=== PATIENT | female | born 1940 | race Caucasian/White ===

== ENCOUNTER 2018-03-05 02:59 | Inpatient (IN) | payer MEDICARE, OTHER ==
[~2018-03-05] VITALS: Ht 162.6 cm; Wt 79.5 kg
--- OUTSIDE RECORDS SUMMARY | 2018-03-05 03:02 | XMS REPORT | Clinical Summary ---
Author Author [facility] Address Unknown Phone Unavailable Care Team Providers Care Stamp Pad Maker Name Role Phone Jerome Abdul MD PCP Allergies Comments Active Allergy Reactions Severity Noted Date Celecoxib Hypertension 12/17/2016 Ciprofloxacin Hypertension Hydralazine Hypertension Tremors Hydrocodone Other (See High Comments) Tremors Hydrocodone-Acetaminophen Other (See 01/11/2010 Comments) Unknown to patient Trimethobenzamide Other (See 01/11/2010 Comments) Medications End Date Status Medication Sig Dispensed Refills Start Date Active doxazosin (CARDURA) 4 MG Take 4 mg by 0 tablet mouth 7 nightly. Active ADVAIR DISKUS 250-50 Inhale 1 puff 0 mcg/dose DISKUS 2 (two) times 7 a day. Active furosemide (LASIX) 40 mg Take 40 mg by 0 tablet mouth every 7 morning. Active hydroCHLOROthiazide Take 25 mg by 0 (HYDRODIURIL) 25 MG mouth every 7 tablet evening. Active levothyroxine (SYNTHROID, Take 137 mcg 0 LEVOXYL) 137 mcg tablet by mouth 7 every morning. Active KLOR-CON M20 20 mEq CR Take 20 mEq 0 tablet by mouth 7 every morning. Active verapamil sustained Take 120 mg 0 release (CALAN-SR) 120 MG by mouth 7 SR tablet every evening. Active latanoprost (XALATAN) Administer 1 0 0.005 % ophthalmic drop to both 7 solution eyes nightly. Active losartan (COZAAR) 100 MG Take 100 mg 0 tablet by mouth 7 every morning. Active GUAIFENESIN/PSEUDOEPHEDRN Take 400 mg 0 E HCL (MUCINEX D ORAL) by mouth 2 (two) times a day. Active fexofenadine (BRIT) Take 180 mg 0 180 MG tablet by mouth every morning. Active lutein 6 mg tablet Take 6 mg by 0 mouth every morning. Active vitamin E 400 UNIT Take 400 0 capsule Units by mouth every morning. Active estradiol (ESTRACE) 0.5 Take 0.25 mg 0 MG tablet by mouth nightly. Active cholecalciferol, vitamin Take 1,000 0 D3, (VITAMIN D3) 1,000 Units by unit tablet mouth every morning. Active TURMERIC ROOT EXTRACT Take 450 mg 0 ORAL by mouth 2 (two) times a day. Active magnesium oxide (MAG-OX) Take 400 mg 0 400 mg tablet by mouth nightly. Active MOVANTIK 25 mg tablet Take 25 mg by 0 tablet mouth daily. 7 Active aspirin (ECOTRIN) 81 MG Take 81 mg by 0 enteric coated tablet mouth 2 (two) times a day. Active fluticasone (FLONASE) 50 1 spray by 0 mcg/actuation nasal spray Each Nare route 2 (two) times a day. Active esomeprazole magnesium Take 22.3 mg 0 (NexIUM 24HR) 22.3 mg by mouth capsule,delayed nightly. release(DR/EC) Active ondansetron (ZOFRAN) 4 MG Take 4 mg by 0 tablet mouth every 8 (eight) hours as needed for nausea or vomiting. Active GAGE EXTRACT ORAL Take 1 0 capsule by mouth every evening. Active irnfzknb-uurv-spbs-FA-K-h Take 1 tablet 0 b#244 (ALIVE WOMEN'S by mouth ENERGY) 18-400-80 every mg-mcg-mcg tablet morning. Active krill oil 500 mg capsule Take 1 0 capsule by mouth daily. Active DOCUSATE SODIUM ORAL Take 1 tablet 0 by mouth 2 (two) times a day as needed. Active azelastine (ASTELIN) 137 1 spray into 0 mcg (0.1 %) nasal spray each nostril nightly. Use in each nostril as directed Active diclofenac (FLECTOR) 1.3 Place 1 patch 0 % patch 12 hour on the skin daily. 08/04/2017 sulfamethoxazole-trimetho Take 1 tablet 14 tablet 0 prim (BACTRIM DS) 800-160 by mouth 2 8 mg per tablet (two) times a day for 7 days. 09/02/2017 nitrofurantoin, Take 1 14 capsule 0 macrocrystal-monohydrate, capsule (100 8 (MACROBID) 100 MG capsule mg total) by mouth 2 (two) times a day for 7 days. 09/30/2017 amoxicillin-pot Take 1 tablet 14 tablet 0 clavulanate (AUGMENTIN) by mouth 2 8 875-125 mg per tablet (two) times a day for 7 days. 11/12/2017 Discontinued fluconazole (DIFLUCAN) Take 1 tablet 1 tablet 0 150 MG tablet (150 mg 8 total) by mouth once for 1 dose. 11/19/2017 amoxicillin-pot Take 1 tablet 14 tablet 0 clavulanate (AUGMENTIN) by mouth 2 8 875-125 mg per tablet (two) times a day for 7 days. 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 Encounters Care Team Description Date Type Specialty Shaina Romano MD 11/12/2017 Refill Urology Shaina Romano MD 11/12/2017 Transcribe Urology Orders Shaina Romano MD 11/07/2017 Telephone Urology Kaela Garcia MD Recurrent UTI 10/24/2017 Orders Only Urology Shaina Romano MD 10/17/2017 Telephone Urology Kaela Garcia MD Recurrent UTI 10/17/2017 Orders Only Urology Kaela Garcia MD Recurrent UTI 10/10/2017 Orders Only Urology Kaela Garcia MD Recurrent UTI 10/03/2017 Orders Only Urology Kaela Garcia MD Recurrent UTI 09/26/2017 Orders Only UrologShaina Max MD Incomplete bladder emptying (Primary Dx); Urinary frequency 09/24/2017 Office Visit UrologShaina Max MD 09/23/2017 Telephone Urology Shaina Romano MD Recurrent UTI (Primary Dx) 09/19/2017 Telephone Urology Kaela Garcia MD Recurrent UTI 09/19/2017 Orders Only Urology Kaela Garcia MD Recurrent UTI 09/12/2017 Orders Only Urology Kaela Garcia MD Recurrent UTI 09/05/2017 Orders Only Urology Kaela Garcia MD Recurrent UTI 08/29/2017 Orders Only Urology Shaina Romano MD 08/26/2017 Telephone Urology Shaina Romano MD 08/22/2017 Telephone Urology Kaela Garcia MD Recurrent UTI 08/22/2017 Orders Only Urology Kaela Garcia MD Recurrent UTI 08/15/2017 Orders Only Urology Kaela Garcia MD Recurrent UTI 08/08/2017 Orders Only Urology Shaina Romano MD 07/28/2017 Telephone Urology Kaela Garcia MD Recurrent UTI (Primary Dx) 07/28/2017 Telephone Urology Shaina Romano MD Recurrent UTI (Primary Dx) 07/24/2017 Telephone Urology Christine Chong MA 04/08/2017 Telephone Gastroenterology Paulino Pearce RN 04/08/2017 Telephone Gastroenterology Jarrod Dangelo MD 03/17/2017 Lab Lab Ryland Whitt MA 03/14/2017 Telephone Gastroenterology after 03/04/2017 Family History Medical History Relation Name Comments No Known Problems Brother No Known Problems Father No Known Problems Maternal Aunt No Known Problems Maternal Grandfather No Known Problems Maternal Grandmother No Known Problems Maternal Uncle No Known Problems Mother No Known Problems Paternal Aunt No Known Problems Paternal Grandfather No Known Problems Paternal Grandmother No Known Problems Paternal Uncle No Known Problems Sister Relation Name Status Comments Brother Father Maternal Aunt Maternal Grandfather Maternal Grandmother Maternal Uncle Mother Paternal Aunt Paternal Grandfather Paternal Grandmother Paternal Uncle Sister Social History Date Tobacco Use Types Packs/Day Years Used Never Smoker Smokeless Tobacco: Never Used Alcohol Use Drinks/Week oz/Week Comments No Sex Assigned at Date Recorded Not on file Industry Job Start Date Occupation Not on file Not on file Not on file Travel End Travel History Travel Start No recent travel history available. Last Filed Vital Signs Not on file Plan of Treatment Care Team Description Date Type Specialty Shaina Romano MD [address] [place] [address] [phone] 09/30/2018 Office Visit Urology Health Maintenance Due Date Last Done Comments SHINGRIX VACCINE (1 of 2) 1988 ZOSTER VACCINE 1998 PNEUMOCOCCAL 2003 POLYSACCHARIDE VACCINE AGE 65 AND OVER PNEUMOCOCCAL-13 2003 INFLUENZA VACCINE 11/12/2017 COLON CANCER SCREENING 03/17/2020 03/17/2017 Implants Device Identifier Shelf Expiration Date Model / Serial / Lot Implanted Type Area Manufactur er 03/13/2021 [id number] / / [id number] Alfredito Rev F Glid.Surf.T2/2+ IPM Left: Knee AESCULAP 14mm - [id number] IMPLANT IMPLANT Implanted: Qty: 1 on 12/17/2016 by Maxim Urrutia MD [employer]TH[employer] 06/11/2026 [id number] / / [id number] Nut F/Femur Extens.Stem All Sizes IPM Left: Knee AESCULAP Neutr - [id number] IMPLANT IMPLANT Implanted: Qty: 1 on 12/17/2016 by Maxim Urrutia MD [employer]TH[employer] 11/11/2025 [id number] / / [id number] Femur Extens.Stem 5 [id number] IPM Left: Knee AESCULAP Jaswant.Less - [id number] IMPLANT IMPLANT Implanted: Qty: 1 on 12/17/2016 by Maxim Urrutia MD ORTH[employer]I 02/11/2026 [id number] / / [id number] As Alfredito Rev F Femur Cemented IPM Left: Knee AESCULAP F4l - [id number] IMPLANT IMPLANT Implanted: Qty: 1 on 12/17/2016 by Maxim Urrutia MD ORTH[employer]AEDI 05/14/2026 [id number] / / [id number] As [place] Offset Stem [id number] IPM Left: Knee AESCULAP Cementless - [id number] IMPLANT IMPLANT Implanted: Qty: 1 on 12/17/2016 by Maxim Urrutia MD ORTH[employer]I 03/13/2021 [id number] / / [id number] As [place] Rev F Tib.Offset IPM Left: Knee AESCULAP Cement.T2 - [id number] IMPLANT IMPLANT Implanted: Qty: 1 on 12/17/2016 by DEVICES Maxim Live MD [employer]TH[employer]I CS 04/14/2018 [id number] 001 / / [id number] Simplex Hv With Gentamicin Us 1 IPM Left: Knee JOSE Pack - [id number] IMPLANT ORTHOPEDIC Implanted: Qty: 1 on 12/17/2016 by DEVICES S Maxim Celaya MD [id number] / / Pin Fxtn W/O Head 3.2x88mm - Knee Joint N/A: N/A AESCULAP [id number] Implants ORTHO Implanted: Qty: 2 on 12/17/2016 by Maxim Celaya MD [id number] / / Pin Headed Thred Univl 3.2x25mm Knee Joint N/A: N/A AESCULAP [place] - [id number] Implants ORTHO Implanted: Qty: 2 on 12/17/2016 by Maxim Celaya MD [id number] / / Pin Headls Thred Univl 3.2x63mm Knee Joint N/A: N/A AESCULAP [place] - [id number] Implants ORTHO Implanted: Qty: 6 on 12/17/2016 by Maxim Celaya MD 04/13/2026 [id number] / / [id number] As [place] Rev Fem.Spacer Post.F4 Left: Knee AESCULAP 5mm - [id number] IMPLANT Implanted: Qty: 1 on 12/17/2016 by Maxim Live MD ORTH[employer]I CS Procedures Comments Procedure Name Priority Date/Time Associated Diagnosis URINE CULTURE Routine 11/08/2017 Recurrent UTI 11:23 AM CDT URINE CULTURE Routine 09/19/2017 Recurrent UTI 1:43 PM CDT URINE CULTURE Routine 08/22/2017 Recurrent UTI 10:34 AM CDT URINE CULTURE Routine 07/24/2017 Recurrent UTI 5:14 PM CDT SURGICAL PATHOLOGY Routine 03/17/2017 REQUEST 4:42 PM RADIATION OFFICER after 03/04/2017 Results * Urine culture (11/08/2017 11:23 AM CDT) Only the most recent of 4 results within the time period is included. Urine culture SEE NOTE (A) [employer] Comment: FORTESCUE CULTURE, URINE, ROUTINE MICRO NUMBER:[id number] TEST STATUS: FINAL SPECIMEN SOURCE: URINE, CLEAN CATCH SPECIMEN QUALITY:ADEQUATE RESULT: 10,000-50,000 CFU/mL of Klebsiella pneumoniae K.pneumo niae -------- -------- INT LEXIS AMOX/CLAVULANATE S <=2 AMPICILLIN R 16 AMP/SULBACTAM S 4 CEFAZOLIN NR<=4 2 CEFEPIME S <=1 CEFTRIAXONE S <=1 CIPROFLOXACIN S <=0.25 GENTAMICIN S <=1 IMIPENEM S <=0.25 LEVOFLOXACIN S <=0.12 NITROFURANTOIN I 64 PIP/TAZOBACTAM S <=4 TOBRAMYCIN S <=1 TRIMETHOPRIM/SULFA R >=320 S=SusceptibleI=Intermediat eR=Resistant*=Not Tested NR=Not ReportedNN=See Therapy Comments THERAPY COMMENTS Note 1: For infections other than uncomplicated UTI caused by E. coli, K. pneumoniae or P. mirabilis: Cefazolin is resistant if LEXIS > or=8 mcg/mL. (Distinguishing susceptible versus intermediate for isolates with LEXIS < or=4 mcg/mL requires additional testing.) Note 2: For uncomplicated UTI caused by E. coli, K. pneumoniae or P. mirabilis: Cefazolin is susceptible if LEXIS <32 mcg/mL and predicts susceptible to the oral agents cefaclor, cefdinir, cefpodoxime, cefprozil, cefuroxime, cephalexin and loracarbef. Specimen Urine Narrative Performed At FASTING:NO [facility] FASTING: NO Resulting Agency Comment Performing Organization Information: Site ID: [id number] Name: [facility] Lab Address: [address] [place] [id number] Director: Nelli Onofre Performing Organization Address City/State/Zipcode Phone Number [employer] [address] [address] * Surgical pathology request (03/17/2017 4:42 PM RADIATION OFFICER) [facility] DEPARTMENT OF PATHOLOGY AND GENOMIC MEDICINE Surgical pathology report See link below for PDF Lab [facility] DEPARTMENT OF Report PATHOLOGY AND GENOMIC MEDICINE Result status This is Final Report to [facility] DEPARTMENT OF [id number] PATHOLOGY AND GENOMIC MEDICINE Performing Organization Address City/State/Zipcode Phone Number [facility] DEPARTMENT OF [address] [place] [address] PATHOLOGY AND GENOMIC MEDICINE after 03/04/2017 Insurance Payer Benefit Subscriber ID Type Phone Address Plan / Group MEDICARE MEDICARE xxxxxxxxxx Medicare [place], [place] PART A AND B COMMERCIAL MISC MISC xxxxxxxxxxx Commercial COMMERCIAL Advance Directives Patient has advance care planning documents on file. For more information, david vance contact: Mohan Eldridge [address] [place] [address]
[2018-03-05 03:18] LABS: BASOPHILS % 0.4 % (0.0-1.0); EOSINOPHILS # (AUTO) 0.1 (0.0-0.4); EOSINOPHILS % 0.7 % (0.0-6.0); HEMATOCRIT 35.6 % (34.2-44.1); HEMOGLOBIN 12.7 g/dL (12.0-16.0); LYMPHOCYTES # (AUTO) 1.5 (1.0-3.2); LYMPHOCYTES % 20.9 % (18.0-39.1); MEAN CORPUSCULAR HEMOGLOBIN 32.6 pg (28-32); MEAN CORPUSCULAR HGB CONC 35.7 g/dL (31-35); MEAN CORPUSCULAR VOLUME 91.5 fL (81-99); MONOCYTES # (AUTO) 0.7 (0.2-0.8); MONOCYTES % 9.7 % (4.4-11.3); NEUTROPHILS # (AUTO) 4.8 (2.1-6.9); NEUTROPHILS % 67.9 % (38.7-80.0); PLATELET COUNT 246 x10e3/uL (140-360); RED BLOOD COUNT 3.89 x10e6/uL (3.6-5.1); RED CELL DISTRIBUTION WIDTH 12.3 % (11.7-14.4)
[2018-03-05 03:37] LABS: ALANINE AMINOTRANSFERASE 16 IU/L (0-55); ALBUMIN 4.1 g/dL (3.5-5.0); ALBUMIN/GLOBULIN RATIO 1.4 (0.8-2.0); ALKALINE PHOSPHATASE 67 IU/L (40-150); ANION GAP 13.6 mmol/L (8-16); BLOOD UREA NITROGEN 11 mg/dL (7-26); BUN/CREATININE RATIO 17 (6-25); CALCIUM 9.4 mg/dL (8.4-10.2); CARBON DIOXIDE 24 mmol/L (22-29); CHLORIDE 89 mmol/L (98-107); CREATINE KINASE 127 IU/L (29-168); CREATININE, SERUM 0.66 mg/dL (0.57-1.11); EST GLOMERULAR FILTRATION RATE > 60 ML/MIN (60-); GLUCOSE 131 mg/dL (74-118); POTASSIUM 3.6 mmol/L (3.5-5.1); SODIUM 123 mmol/L (136-145)
--- NOTE | 2018-03-05 03:55 | Diagnostic Imaging Report ---
History: Weakness, headache Comparison studies: None Technique: Axial images were obtained from the skull base to the vertex. Coronal and sagittal reconstructions obtained from the axial data. Dose modulation, iterative reconstruction, and/or weight based adjustment of the mA/kV was utilized to reduce the radiation dose to as low as reasonably achievable. Findings: Scalp/skull: No abnormalities. No fractures, blastic or lytic lesions. Extra-axial spaces: No masses. No fluid collections. Brain sulci: Appropriate for age. Ventricles: Normal in size and configuration. No hydrocephalus. Parenchyma: No abnormal densities. No masses, hemorrhage, acute or chronic cortical vascular insults. Sellar/suprasellar region: No abnormalities Craniocervical junction: Patent foramen magnum. No Chiari one malformation. Incidental mucosal thickening in the ethmoid air cells IMPRESSION: No intracranial abnormalities. Signed by: Dr. Richard Frausto M.D. on 03/05/2018 3:51 AM
[2018-03-05] MEDS ORDERED: ONDANSETRON HCL INJ 2 MG/ML VIAL IV STA (04:11)
[2018-03-05] MEDS ORDERED: ONDANSETRON HCL INJ 2 MG/ML VIAL ONE (04:20)
--- NOTE | 2018-03-05 05:17 | Diagnostic Imaging Report ---
EXAMINATION: CHEST SINGLE (PORTABLE) INDICATION: Weakness, hypertension COMPARISON: None FINDINGS: AP view TUBES and LINES: None. LUNGS: Lungs are well inflated. Mild bibasilar atelectasis. There is no evidence of pneumonia or pulmonary edema. PLEURA: No pleural effusion or pneumothorax. HEART AND MEDIASTINUM: The cardiomediastinal silhouette is unremarkable. BONES AND SOFT TISSUES: No acute osseous lesion. Soft tissues are unremarkable. UPPER ABDOMEN: No free air under the diaphragm. IMPRESSION: No acute thoracic abnormality. Signed by: DR. Miguel Erickson MD on 03/05/2018 5:14 AM
[2018-03-05 05:51] LABS: CLARITY,URINE CLEAR (CLEAR); COLOR,URINE YELLOW (YELLOW); LEUKOCYTE ESTERASE ,URINE NEGATIVE (NEGATIVE); NITRITE,URINE NEGATIVE (NEGATIVE); PROTEIN,URINE DIPSTICK TRACE (NEGATIVE)
[2018-03-05 05:52] LABS: BILIRUBIN,URINE NEGATIVE (NEGATIVE); KETONES,URINE 3+ (NEGATIVE); URINE UROBILINOGEN 0.2 mg/dL (0.2 - 1)
[2018-03-05 05:53] LABS: BACTERIA,URINE FEW /HPF; EPITHELIAL CELLS,URINE FEW /LPF; RBC,URINE 0-5 /HPF (0-5); WBC,URINE (MAN) 0-5 /HPF (0-5)
[2018-03-05] MEDS ORDERED: ACETAMINOPHEN 325 MG TAB PO ONE (06:00)
--- OUTSIDE RECORDS SUMMARY | 2018-03-05 06:14 | XMS REPORT ---
Author Author [facility] Address Unknown Phone Unavailable Care Team Providers Care Prize Coordinator Name Role Phone Oni CROOKS Unavailable Unavailable Problems This patient has no known problems. Allergies, Adverse Reactions, Alerts This patient has no known allergies or adverse reactions. Medications This patient has no known medications. Results Test Description Test Time Test Comments Text Results Atomic Results Result Comments CHEST SINGLE (PORTABLE) 2018-03-05 05:11:00 [facility] [address] [place], [place] [address] Patient Name: XIOMARA ROCKWELL MR #: [id number] : 1940 Age/Sex: 77/F Req #: [id number] Adm Physician: Ordered by: NAHUN CROOKS MD Report #: [id number] Location: ER Room/Bed: Procedure: [id number] DX/CHEST SINGLE (PORTABLE) Exam Date: 03/05/18 Exam Time: 0347 REPORT STATUS: Signed EXAMINATION: CHEST SINGLE (PORTABLE) INDICATION: Weakness, hypertension COMPARISON: None FINDINGS: AP view TUBES and LINES: None. LUNGS: Lungs are well inflated. Mild bibasilar atelectasis. There is no evidence of pneumonia or pulmonary edema. PLEURA: No pleural effusion or pneumothorax. HEART AND MEDIASTINUM: The cardiomediastinal silhouette is unremarkable. BONES AND SOFT TISSUES: No acute osseous lesion. Soft tissues are unremarkable. UPPER ABDOMEN: No free air under the diaphragm. IMPRESSION: No acute thoracic abnormality. Signed by: DR. Miguel Shelby MD on 03/05/2018 5:14 AM Dictated By: MIGUEL SHELBY MD 3 Transcribed By: LUIS on 03/05/18513 COPY TO: NAHUN CROOKS MD CT BRAIN WO 2018-03-05 03:50:00 [place] [address] Patient Name: XIOMARA ROCKWELL MR #: [id number] : 1940 Age/Sex: 77/F Req #: [id number] Adm Physician: Ordered by: NAHUN CROOKS MD Report #: [id number] Location: ER Room/Bed: Procedure: [id number] CT/CT BRAIN WO Exam Date: 03/05/18 Exam Time: 0339 REPORT STATUS: Signed History: Weakness, headache Comparison studies: None Technique: Axial images were obtained from the skull base to the vertex. Coronal and sagittal reconstructions obtained from the axial data. Dose modulation, iterative reconstruction, and/or weight based adjustment of the mA/kV was utilized to reduce the radiation dose to as low as reasonably achievable. Findings: Scalp/skull: No abnormalities. No fractures, blastic or lytic lesions. Extra-axial spaces: No masses. No fluid collections. Brain sulci: Appropriate for age. Ventricles: Normal in size and configuration. No hydrocephalus. Parenchyma: No abnormal densities. No masses, hemorrhage, acute or chronic cortical vascular insults. Sellar/suprasellar region: No abnormalities Craniocervical junction: Patent foramen magnum. No Chiari one malformation. Incidental mucosal thickening in the ethmoid air cells IMPRESSION: No intracranial abnormalities. Signed by: Dr. Richard Frausto M.D. on 03/05/2018 3:51 AM Dictated By: RICHARD FRAUSTO MD, MD 0 Transcribed By: LUIS on 03/05/18350 COPY TO: NAHUN CROOKS MD
--- OUTSIDE RECORDS SUMMARY | 2018-03-05 06:14 | XMS REPORT | Clinical Summary ---
Author Author [facility] Address Unknown Phone Unavailable Care Team Providers Care Still Operator Name Role Phone Jerome Abdul MD PCP [...] 0 capsule by mouth every evening. Active jevdeqfh-cbyb-mdjb-FA-K-h Take 1 tablet 0 b#244 (ALIVE WOMEN'S [...] Date Type Specialty Shaina Romano MD [address] [address] [place] [address] [phone] 09/30/2018 Office Visit Urology Health Maintenance Due Date Last Done Comments SHINGRIX VACCINE (1 of 2) 1988 ZOSTER VACCINE 1998 PNEUMOCOCCAL 2003 POLYSACCHARIDE VACCINE AGE 65 AND OVER PNEUMOCOCCAL-13 2003 INFLUENZA VACCINE 11/12/2017 COLON CANCER SCREENING 03/17/2020 03/17/2017 Implants Device Identifier Shelf Expiration Date Model / Serial / Lot Implanted Type Area Manufactur er 03/13/2021 [id number] / / [id number] Alfredito Rev F Glid.Surf.T2/2+ IPM Left: Knee AESCULAP 14mm - [id number] IMPLANT IMPLANT Implanted: Qty: 1 on 12/17/2016 by Maxim Urrutia MD [employer]TH[employer]I 06/11/2026 [id number] / / [id number] Nut F/Femur Extens.Stem All Sizes IPM Left: Knee AESCULAP Neutr - [id number] IMPLANT IMPLANT Implanted: Qty: 1 on 12/17/2016 by Maxim Urrutia MD [employer]TH[employer]I 11/11/2025 [id number] / / [id number] Femur Extens.Stem 5 [id number] IPM Left: Knee AESCULAP Jaswant.Less - [id number] IMPLANT IMPLANT Implanted: Qty: 1 on 12/17/2016 by Maxim Urrutia MD ORTHOPAEDI 02/11/2026 [id number] / / [id number] As Alfredito Rev F Femur Cemented IPM Left: Knee AESCULAP F4l - [id number] IMPLANT IMPLANT Implanted: Qty: 1 on 12/17/2016 by Maxim Urrutia MD ORTHOPAEDI 05/14/2026 [id number] / / [id number] As Tibia Offset Stem [id number] IPM Left: Knee AESCULAP Cementless - [id number] IMPLANT IMPLANT Implanted: Qty: 1 on 12/17/2016 by Maxim Urrutia MD ORTHOPAEDI 03/13/2021 [id number] / / [id number] As [place] Rev F Tib.Offset IPM Left: Knee AESCULAP Cement.T2 - [id number] IMPLANT IMPLANT Implanted: Qty: 1 on 12/17/2016 by DEVICES Maxim Live MD [employer]TH[employer]I CS 04/14/2018 [id number] 1 001 / / [id number] Simplex Hv With Gentamicin Us 1 IPM Left: Knee JOSE Pack - [id number] IMPLANT ORTHOPEDIC Implanted: Qty: 1 on 12/17/2016 by DEVICES S Maxim Celaya MD [id number] / / Pin Fxtn W/O Head 3.2x88mm - Knee Joint N/A: N/A AESCULAP [id number] Implants ORTHO Implanted: Qty: 2 on 12/17/2016 by Maxim Celaya MD [id number] / / Pin Headed Thred Univl 3.2x25mm Knee Joint N/A: N/A AESCULAP [place] - [id number] Implants ORTHO Implanted: Qty: 2 on 12/17/2016 by Maxim Celaya MD [id number] / / Pin Headls Thred Univl 3.2x63mm Knee Joint N/A: N/A AESCULAP [place] - [id number] Implants ORTHO Implanted: Qty: 6 on 12/17/2016 by Maxim Celaya MD 04/13/2026 [id number] / / [id number] As [place] Rev Fem.Spacer Post.F4 Left: Knee AESCULAP 5mm - [id number] IMPLANT Implanted: Qty: 1 on 12/17/2016 by Maxim Live MD ORTH[employer]I CS Procedures Comments Procedure Name Priority Date/Time Associated Diagnosis URINE CULTURE Routine 11/08/2017 Recurrent UTI 11:23 AM CDT URINE CULTURE Routine 09/19/2017 Recurrent UTI 1:43 PM CDT URINE CULTURE Routine 08/22/2017 Recurrent UTI 10:34 AM CDT URINE CULTURE Routine 07/24/2017 Recurrent UTI 5:14 PM CDT SURGICAL PATHOLOGY Routine 03/17/2017 REQUEST 4:42 PM STUCCO PLASTERER after 03/04/2017 Results * Urine culture (11/08/2017 11:23 AM CDT) Only the most recent of 4 results within the time period is included. Urine culture SEE NOTE (A) [employer] Comment: [place]WAY CULTURE, URINE, ROUTINE MICRO NUMBER:[id number] TEST STATUS: FINAL SPECIMEN SOURCE: URINE, CLEAN [...] Performing Organization Information: Site ID: [id number] Name: [facility] Lab Address: [address] [place] [id number] Director: Nelli Onofre Performing Organization Address City/State/Zipcode Phone Number [employer] [address] [address] * Surgical pathology request (03/17/2017 4:42 PM STUCCO PLASTERER) [facility] DEPARTMENT OF PATHOLOGY AND GENOMIC MEDICINE Surgical pathology report See link below for PDF Lab [facility] DEPARTMENT OF Report PATHOLOGY AND GENOMIC MEDICINE Result status This is Final Report to [facility] DEPARTMENT OF [id number] PATHOLOGY AND GENOMIC MEDICINE Performing Organization Address City/State/Zipcode Phone Number [facility] DEPARTMENT OF [address] [place] [address] PATHOLOGY AND GENOMIC MEDICINE after 03/04/2017 Insurance Payer Benefit Subscriber ID Type Phone Address Plan / Group MEDICARE MEDICARE xxxxxxxxxx Medicare [place], [place] PART A AND B COMMERCIAL MISC MISC xxxxxxxxxxx Commercial COMMERCIAL Advance Directives Patient has advance care planning documents on file. For more information, david vance contact: Mohan Eldridge [address] [place] [address]
[2018-03-05] MEDS ORDERED: ACETAMINOPHEN 325 MG TAB PO PRN (06:15)
[2018-03-05] MEDS ORDERED: ONDANSETRON HCL INJ 2 MG/ML VIAL IV PRN (06:15)
[2018-03-05] MEDS ORDERED: ASTROPRO INH (06:19)
[2018-03-05] MEDS ORDERED: VITAMIN E400 UNI2 PO (06:19)
[2018-03-05] MEDS ORDERED: LATANOPROST2.5 ML OP (06:19)
[2018-03-05] MEDS ORDERED: [UNRECOGNIZED DRUG - OTHER] INH (06:19)
[2018-03-05] MEDS ORDERED: VITAMIN D31000 UNI1 PO (06:19)
[2018-03-05] MEDS ORDERED: MUCINEX1200 MG PO (06:19)
[2018-03-05] MEDS ORDERED: SYNTHROID50 MCG PO (06:19)
[2018-03-05] MEDS ORDERED: NORVASC5 MG PO (06:19)
[2018-03-05] MEDS ORDERED: ESTRADIOL1 MG PO (06:19)
[2018-03-05] MEDS ORDERED: KLOR-CON 1010 MEQ PO (06:19)
[2018-03-05] MEDS ORDERED: XYZAL5 MG PO (06:19)
[2018-03-05] MEDS ORDERED: DOXAZOSIN MESYLA2 MG PO (06:19)
[2018-03-05] MEDS ORDERED: LUTEIN6 MG PO (06:19)
[2018-03-05] MEDS ORDERED: FLONASE NS (06:19)
[2018-03-05] MEDS ORDERED: HERBAL LAXATIVE PO (06:19)
[2018-03-05] MEDS ORDERED: HYDROCHLOROTHIA25 MG PO (06:19)
[2018-03-05] MEDS ORDERED: DOCUSATE SODIU100 MG PO (06:19)
[2018-03-05] MEDS ORDERED: MACA500 MG PO (06:19)
[2018-03-05] MEDS ORDERED: ASPIR 8181 MG PO (06:19)
[2018-03-05] MEDS ORDERED: LOSARTAN POTAS100 MG PO (06:19)
[2018-03-05] MEDS ORDERED: NEXIUM20 MG PO (06:19)
[2018-03-05] MEDS: ESTRADIOL 1 MG TAB PO SCH (06:30)
[2018-03-05] MEDS: LEVOTHYROXINE SODIUM 50 MCG TAB PO SCH (06:42)
[2018-03-05] MEDS: SODIUM CHLORIDE 0.9% 1000ML 1,000 ML IV SCH ×2 (06:42→20:49)
[2018-03-05 07:43] VITALS: BP 157/75
[2018-03-05 08:03] VITALS: BP 157/75
[2018-03-05] MEDS: POTASSIUM CHLORIDE 20 MEQ TAB CR PO SCH (08:48)
[2018-03-05] MEDS: LOSARTAN POTASSIUM 100 MG TAB PO SCH (08:48)
[2018-03-05] MEDS: GUAIFENESIN 600 MG TAB PO SCH ×2 (08:49→15:31)
[2018-03-05] MEDS ORDERED: HYDROCHLOROTHIAZIDE 25 MG TAB PO SCH (09:00)
[2018-03-05] MEDS ORDERED: DOXAZOSIN MESYLATE 2 MG TAB PO SCH (09:00)
[2018-03-05] MEDS: FLUTICASONE PROPIONATE NASAL SPRAY NS SCH (09:00)
[2018-03-05] MEDS ORDERED: DOCUSATE SODIUM 100 MG CAP PO SCH (09:00)
[2018-03-05] MEDS ORDERED: [UNRECOGNIZED DRUG - OTHER] PO SCH (09:00)
[2018-03-05] MEDS ORDERED: LORATADINE 10 MG TAB PO SCH (09:00)
[2018-03-05] MEDS ORDERED: AMLODIPINE BESYLATE 5 MG TAB PO SCH (09:00)
[2018-03-05] MEDS ORDERED: LUTEIN 6 MG PO SCH (09:00)
[2018-03-05] MEDS ORDERED: ACETAMIN/BUTALBITAL/CAFFEINE TAB PO PRN (12:00)
[2018-03-05] MEDS ORDERED: CEFTRIAXONE SOD 1 GM/NS 50 ML 50 ML IV SCH (12:00)
[2018-03-05] MEDS ORDERED: BENZONATATE 100 MG CAP PO PRN (12:00)
[2018-03-05] MEDS: FUROSEMIDE 40 MG TAB PO SCH (12:00)
[2018-03-05 12:04] VITALS: BP 114/82
[2018-03-05] MEDS ORDERED: CEFTRIAXONE SOD 1 GM VIAL IV SCH (12:15)
[2018-03-05] MEDS ORDERED: ACETAMIN/BUTALBITAL/CAFFEINE TAB PO ONE (12:30)
--- NOTE | 2018-03-05 15:54 | History and Physical ---
PRIMARY CARE PHYSICIAN: Dr. Cano . ATTENDING: Dr. Jerome Noble. CHIEF COMPLAINT: Generalized weakness and sodium level of 123 with upper respiratory infection. HISTORY: Patient is a 77-year-old female who complained of headaches and weakness. The patient has been having symptoms for the past week or so, much worse for the past few days. Patient also has upper respiratory symptoms of sinus congestion and cough. She described having weakness all over and not improving. The patient came to the emergency room for evaluation. Currently, she is stable. PAST MEDICAL HISTORY 1. Hypertension. 2. Urinary retention, recurrent urinary tract infection. 3. Chronic asthma. 4. Recurrent bronchitis. 5. Osteoarthritis. 6. Hypothyroidism. PAST SURGICAL HISTORY 1. Multiple knee surgeries and replacement. 2. Cataract surgery. 3. Hysterectomy. 4. Partial thyroidectomy. 5. Lumbar laminectomy. 6. Spinal fusion. 7. Mastectomy. 8. Urinary bladder stimulator. SOCIAL HISTORY: Patient does not smoke or use alcohol. She lives in the community. ALLERGIES: TO HYDRALAZINE, CIPRO, ALBUTEROL, AND HYDROCODONE. HOME MEDICATIONS: List is reviewed. REVIEW OF SYSTEMS: Generalized weakness and upper respiratory symptoms. PHYSICAL EXAMINATION VITAL SIGNS: Temperature is 98, blood pressure 171/89, pulse rate 74, respirations 22. GENERAL: The patient is anxious, but she is not in any distress. She is stable. HEENT: Normocephalic, atraumatic. Anicteric. Possible sinus congestion. NECK: Supple. PULMONARY: Diminished breath sounds without any wheezing or rales. CARDIOVASCULAR: Regular rate rhythm. ABDOMEN: Soft, nontender. No distention. EXTREMITIES: Trace edema. No cyanosis or clubbing. NEUROLOGIC: No focal deficit. Moving all extremities. LABORATORY: WBC 7.1, hemoglobin 12.7, hematocrit 35.6, platelets 246. Chemistry: Sodium is 123, potassium 3.6, chloride 89, bicarb 24, BUN 11, creatinine 0.6. Glucose 131. IMAGING: Chest x-ray and brain CT scan otherwise unremarkable. IMPRESSION 1. Generalized weakness most likely secondary to hydrochlorothiazide blood pressure medication, diuretic as well as over drinking of water for prevention of urinary tract infection. 2. Upper respiratory symptoms, most likely allergic rhinitis associated with seasonal allergies most likely. 3. Stable asthma. 4. Hypertensive urgency secondary to most likely stress and not taking yet a medication for blood pressure. PLAN 1. We will discontinue the hydrochlorothiazide. Start the patient on Lasix. Normal saline for now. Continue with some other home medications except for supplement. Obtain a TSH level. Blood pressure control. We will monitor the patient closely at this time. The patient will be placed on Rocephin 1 gram daily. 2. She will continue with Flonase. Add on Claritin and Singulair. 3. Cough medication. 4. Bupap for headache. Job#: [id number] NICOLAS
[2018-03-05 20:00] VITALS: BP 154/79
[2018-03-05] MEDS: IPRATROPIUM BROMIDE 0.02% 2.5 ML NEB NEB PRN (20:13)
[2018-03-05 21:00] VITALS: BP 154/79
[2018-03-05] MEDS: MONTELUKAST SODIUM 10 MG TAB PO SCH (21:00)
[2018-03-05] MEDS: LATANOPROST(OPTH) 2.5 ML BTL OP SCH (21:28)
[2018-03-05] MEDS: ASPIRIN 81 MG CHEW TAB PO SCH (21:28)
[2018-03-05] MEDS: DOXAZOSIN MESYLATE 2 MG TAB PO SCH (21:28)
[2018-03-05] MEDS: PANTOPRAZOLE SOD 40 MG TABEC PO SCH (21:29)
[2018-03-05] MEDS: AMLODIPINE BESYLATE 5 MG TAB PO SCH (21:29)
[2018-03-05] MEDS: DOCUSATE SODIUM 100 MG CAP PO SCH (21:29)
[2018-03-06] VITALS (7 sets, daily range): BP systolic 123–155; BP diastolic 62–69
[2018-03-06 05:19] LABS: BASOPHILS % 0.6 % (0.0-1.0); EOSINOPHILS # (AUTO) 0.1 (0.0-0.4); EOSINOPHILS % 1.2 % (0.0-6.0); HEMATOCRIT 31.9 % (34.2-44.1); HEMOGLOBIN 11.2 g/dL (12.0-16.0); LYMPHOCYTES # (AUTO) 1.4 (1.0-3.2); LYMPHOCYTES % 27.8 % (18.0-39.1); MEAN CORPUSCULAR HEMOGLOBIN 32.3 pg (28-32); MEAN CORPUSCULAR HGB CONC 35.1 g/dL (31-35); MEAN CORPUSCULAR VOLUME 91.9 fL (81-99); MONOCYTES # (AUTO) 0.7 (0.2-0.8); MONOCYTES % 13.5 % (4.4-11.3); NEUTROPHILS # (AUTO) 2.9 (2.1-6.9); NEUTROPHILS % 56.5 % (38.7-80.0); PLATELET COUNT 239 x10e3/uL (140-360); RED BLOOD COUNT 3.47 x10e6/uL (3.6-5.1); RED CELL DISTRIBUTION WIDTH 12.2 % (11.7-14.4)
[2018-03-06 05:43] LABS: ALANINE AMINOTRANSFERASE 14 IU/L (0-55); ALBUMIN 3.3 g/dL (3.5-5.0); ALBUMIN/GLOBULIN RATIO 1.4 (0.8-2.0); ALKALINE PHOSPHATASE 54 IU/L (40-150); ANION GAP 11.3 mmol/L (8-16); BLOOD UREA NITROGEN 6 mg/dL (7-26); BUN/CREATININE RATIO 10 (6-25); CALCIUM 8.5 mg/dL (8.4-10.2); CARBON DIOXIDE 25 mmol/L (22-29); CHLORIDE 96 mmol/L (98-107); CREATININE, SERUM 0.59 mg/dL (0.57-1.11); EST GLOMERULAR FILTRATION RATE > 60 ML/MIN (60-); GLUCOSE 89 mg/dL (74-118); POTASSIUM 3.3 mmol/L (3.5-5.1); SODIUM 129 mmol/L (136-145)
[2018-03-06] MEDS: LEVOTHYROXINE SODIUM 50 MCG TAB PO SCH (05:59)
[2018-03-06] MEDS: FLUTICASONE PROPIONATE NASAL SPRAY NS SCH (08:45)
[2018-03-06] MEDS: FUROSEMIDE 40 MG TAB PO SCH (08:45)
[2018-03-06] MEDS: LORATADINE 10 MG TAB PO SCH (08:45)
[2018-03-06] MEDS: LOSARTAN POTASSIUM 100 MG TAB PO SCH (08:45)
[2018-03-06] MEDS: GUAIFENESIN 600 MG TAB PO SCH ×2 (08:45→17:00)
[2018-03-06] MEDS: POTASSIUM CHLORIDE 20 MEQ TAB CR PO SCH (08:45)
[2018-03-06] MEDS: SODIUM CHLORIDE 0.9% 1000ML 1,000 ML IV SCH (10:30)
[2018-03-06] MEDS ORDERED: POTASSIUM CHLORIDE 20 MEQ TAB CR PO ONE (12:40)
[2018-03-06] MEDS: AMOXICILLIN 250 MG CAP PO SCH ×2 (13:30→20:53)
[2018-03-06] MEDS: IPRATROPIUM BROMIDE 0.02% 2.5 ML NEB NEB PRN ×2 (15:15→19:19)
[2018-03-06] MEDS: LATANOPROST(OPTH) 2.5 ML BTL OP SCH (20:53)
[2018-03-06] MEDS: ASPIRIN 81 MG CHEW TAB PO SCH (20:53)
[2018-03-06] MEDS: DOCUSATE SODIUM 100 MG CAP PO SCH (20:53)
[2018-03-06] MEDS: AMLODIPINE BESYLATE 5 MG TAB PO SCH (20:53)
[2018-03-06] MEDS: MONTELUKAST SODIUM 10 MG TAB PO SCH (20:53)
[2018-03-06] MEDS: PANTOPRAZOLE SOD 40 MG TABEC PO SCH (20:53)
[2018-03-06] MEDS: DOXAZOSIN MESYLATE 2 MG TAB PO SCH (20:53)
[2018-03-07] VITALS: BP 146/62
[2018-03-07] MEDS: SODIUM CHLORIDE 0.9% 1000ML 1,000 ML IV SCH (01:19)
[2018-03-07 04:00] VITALS: BP 138/61
[2018-03-07 05:54] LABS: ANION GAP 8.7 mmol/L (8-16); BLOOD UREA NITROGEN 11 mg/dL (7-26); BUN/CREATININE RATIO 21 (6-25); CALCIUM 8.4 mg/dL (8.4-10.2); CARBON DIOXIDE 25 mmol/L (22-29); CHLORIDE 103 mmol/L (98-107); CREATININE, SERUM 0.53 mg/dL (0.57-1.11); EST GLOMERULAR FILTRATION RATE > 60 ML/MIN (60-); GLUCOSE 84 mg/dL (74-118); POTASSIUM 3.7 mmol/L (3.5-5.1); SODIUM 133 mmol/L (136-145)
[2018-03-07] MEDS: AMOXICILLIN 250 MG CAP PO SCH ×3 (06:27→21:11)
[2018-03-07] MEDS: LEVOTHYROXINE SODIUM 50 MCG TAB PO SCH (06:27)
[2018-03-07] MEDS: ESTRADIOL 1 MG TAB PO SCH (06:27)
[2018-03-07] MEDS: IPRATROPIUM BROMIDE 0.02% 2.5 ML NEB NEB PRN ×3 (07:15→19:30)
[2018-03-07 08:27] VITALS: BP 161/72
[2018-03-07] MEDS: FUROSEMIDE 20 MG TAB PO SCH (09:00)
[2018-03-07] MEDS ORDERED: SALINE 0.65% NAS SOLN 1 SPRAY BTL SCH (09:00)
[2018-03-07] MEDS: GUAIFENESIN 600 MG TAB PO SCH ×2 (09:00→17:00)
[2018-03-07] MEDS: LOSARTAN POTASSIUM 100 MG TAB PO SCH (09:00)
[2018-03-07] MEDS: POTASSIUM CHLORIDE 20 MEQ TAB CR PO SCH (09:00)
[2018-03-07] MEDS: FLUTICASONE PROPIONATE NASAL SPRAY NS SCH (09:00)
[2018-03-07] MEDS: LORATADINE 10 MG TAB PO SCH (09:00)
[2018-03-07] MEDS ORDERED: LEVALBUTEROL HCL SOLN NEBU 0.63 MG/3 ML NEB INH SCH (11:00)
[2018-03-07 11:37] VITALS: BP 151/65
[2018-03-07 15:46] VITALS: BP 158/67
[2018-03-07 20:00] VITALS: BP 153/64
[2018-03-07] MEDS: LATANOPROST(OPTH) 2.5 ML BTL OP SCH (21:00)
[2018-03-07] MEDS: MONTELUKAST SODIUM 10 MG TAB PO SCH (21:00)
[2018-03-07] MEDS: AMLODIPINE BESYLATE 5 MG TAB PO SCH (21:00)
[2018-03-07] MEDS: ASPIRIN 81 MG CHEW TAB PO SCH (21:00)
[2018-03-07] MEDS: DOXAZOSIN MESYLATE 2 MG TAB PO SCH (21:00)
[2018-03-07] MEDS: PANTOPRAZOLE SOD 40 MG TABEC PO SCH (21:00)
[2018-03-07] MEDS: DOCUSATE SODIUM 100 MG CAP PO SCH (21:00)
[2018-03-08] VITALS: BP 155/67
[2018-03-08 04:00] VITALS: BP 152/67
[2018-03-08] MEDS: LEVOTHYROXINE SODIUM 50 MCG TAB PO SCH (05:30)
[2018-03-08] MEDS: AMOXICILLIN 250 MG CAP PO SCH (05:30)
[2018-03-08 06:24] LABS: ANION GAP 11.9 mmol/L (8-16); BLOOD UREA NITROGEN 9 mg/dL (7-26); BUN/CREATININE RATIO 16 (6-25); CALCIUM 9.3 mg/dL (8.4-10.2); CARBON DIOXIDE 26 mmol/L (22-29); CHLORIDE 99 mmol/L (98-107); CREATININE, SERUM 0.58 mg/dL (0.57-1.11); EST GLOMERULAR FILTRATION RATE > 60 ML/MIN (60-); GLUCOSE 79 mg/dL (74-118); POTASSIUM 3.9 mmol/L (3.5-5.1); SODIUM 133 mmol/L (136-145)
[2018-03-08] MEDS: IPRATROPIUM BROMIDE 0.02% 2.5 ML NEB NEB PRN (06:55)
[2018-03-08 07:57] VITALS: BP 158/67
[2018-03-08] MEDS: GUAIFENESIN 600 MG TAB PO SCH (09:00)
[2018-03-08] MEDS: POTASSIUM CHLORIDE 20 MEQ TAB CR PO SCH (09:00)
[2018-03-08] MEDS: LOSARTAN POTASSIUM 100 MG TAB PO SCH (09:00)
[2018-03-08] MEDS: FUROSEMIDE 20 MG TAB PO SCH (09:00)
[2018-03-08] MEDS: FLUTICASONE PROPIONATE NASAL SPRAY NS SCH (09:00)
[2018-03-08] MEDS: LORATADINE 10 MG TAB PO SCH (09:00)
[2018-03-08 12:13] VITALS: BP 171/72
--- NOTE | 2018-03-08 22:03 | Discharge Summary ---
PRIMARY CARE PHYSICIAN: Dr. Jerome Abdul. FINAL DIAGNOSES: 1. Generalized weakness secondary to moderate hyponatremia, sodium level of 123. 2. Acute bronchitis/upper respiratory infection secondary to multiple problems including allergic rhinitis and chronic allergies. 3. Resistant to multiple medication treatment recommendations. SUMMARY: A 77-year-old female who came in with generalized weakness, low sodium level. Apparently, she had this issue in the past and was told to stop the hydrochlorothiazide, but she persistently took it. She does have a furosemide at home which she did not take because she wanted to take her hydrochlorothiazide instead. Discussed with the patient at length with respect to the low sodium level with hydrochlorothiazide as a side effect. The patient is well aware. During her hospitalization, she was treated with normal saline and instead of hydrochlorothiazide, she was given furosemide 20 mg once a day. The patient also has ongoing upper respiratory symptoms, acute bronchitis. She was given antibiotics and steroids at home, but she did not start it. She does have amoxicillin and Medrol Dosepak. Here the patient was on Atrovent nebulizer treatment and recommended Xopenex which she refused. The patient's wheezing is improving with current treatment. She did not receive steroids because she stated that she has a Medrol Dosepak at home and she will start it when she gets home. At this time, she will discharge home today. Continue with home medications. I recommended to go ahead and initiate the amoxicillin and the furosemide along with the Medrol Dosepak that she already had at home. Advised the patient strongly to go ahead and stop the hydrochlorothiazide. The patient expressed understanding, but she will decide after followup with her family doctor. The patient is discharged home today. Medication reconciliation is done. No new prescription. Job#: [id number]
== END 2018-03-08 14:09 | disposition home or self-care (01) | DRG 202 ==
LOC: ER 02:59 → ERHOLD 06:11 → MED/SURG3 07:32
PROVIDERS: ADMIT Internal Medicine; ATTEND Internal Medicine
DX: J20.9 Acute bronchitis, unspecified (principal); E87.1 Hypo-osmolality and hyponatremia; I10 Essential (primary) hypertension; J45.909 Unspecified asthma, uncomplicated; T50.2X5A Adverse effect of carbonic-anhydrase inhibitors, benzothiadiazides and other diuretics, initial encounter; E03.9 Hypothyroidism, unspecified; M19.90 Unspecified osteoarthritis, unspecified site; I16.0 Hypertensive urgency; E87.6 Hypokalemia; Z98.1 Arthrodesis status; Z79.82 Long term (current) use of aspirin; Z88.1 Allergy status to other antibiotic agents; Z88.5 Allergy status to narcotic agent; Z88.8 Allergy status to other drugs, medicaments and biological substances
CPT/HCPCS: 36415; 70450; 71045; 80048; 80053; 81001; 82550; 82553; 84443; 84484; 85025; 93005; 94640; 99284; J0696; J2405; J7030

== ENCOUNTER 2018-08-31 17:28 | Emergency (ER) | payer MEDICARE, OTHER ==
[~2018-08-31] VITALS: Ht 162.6 cm; Wt 79.4 kg
[~2018-08-31 17:28] MED LIST: ASPIR 8181 MG PO; ASTROPRO INH; DOCUSATE SODIU100 MG PO; DOXAZOSIN MESYLA2 MG PO; ESTRADIOL1 MG PO; FLONASE NS; HERBAL LAXATIVE PO; HYDROCHLOROTHIA25 MG PO; KLOR-CON 1010 MEQ PO; LATANOPROST2.5 ML OP; LOSARTAN POTAS100 MG PO; LUTEIN6 MG PO; MACA500 MG PO; MUCINEX1200 MG PO; NEXIUM20 MG PO; NORVASC5 MG PO; SYNTHROID50 MCG PO; VITAMIN D31000 UNI1 PO; VITAMIN E400 UNI2 PO; XYZAL5 MG PO; [UNRECOGNIZED DRUG - OTHER] INH
--- OUTSIDE RECORDS SUMMARY | 2018-08-31 17:31 | XMS REPORT ---
Author [facility] Address Unknown Phone Unavailable Care Team Providers Care Wallet Assembler Name Role Phone Oni CROOKS Unavailable Unavailable Problems This patient has no known problems. Allergies, Adverse Reactions, Alerts This patient has no known allergies or adverse reactions. Medications This patient has no known medications. Results Test Description Test Time Test Comments Text Results Atomic Results Result Comments CHEST SINGLE (PORTABLE) 2018-03-05 05:11:00 [place] [address] Patient Name: XIOMARA ROCKWELL MR #: [id number] : 1940 Age/Sex: 77/F Req #: [id number] Adm Physician: Ordered by: NAHUN CROOKS MD Report #: [id number] Location: ER Room/Bed: Procedure: [id number] DX/CHEST SINGLE (PORTABLE) Exam Date: 03/05/18 Exam [...] CROOKS MD CT BRAIN WO 2018-03-05 03:50:00 [place] [address] Patient Name: XIOMARA ROCKWELL MR #: [id number] : 1940 Age/Sex: 77/F Req #: [id number] Adm Physician: Ordered by: NAHUN CROOKS MD Report #: [id number] Location: ER Room/Bed: Procedure: [id number] CT/CT BRAIN WO Exam Date: 03/05/18 Exam [...] RICHARD FRAUSTO MD, MD 0 Transcribed By: ULIS on 03/05/18350 COPY TO: NAHUN CROOKS MD
--- OUTSIDE RECORDS SUMMARY | 2018-08-31 17:31 | XMS REPORT | Continuity of Care Document ---
Author Author [facility] Interface Address Unknown Phone Unavailable Problems Problem Status Onset Date Classification Date Reported Comments Source Generalized weakness Active Problem 03/08/2018 [facility] Hyponatremia Active Problem 03/08/2018 [facility] Medications Medication Details Route Status Patient Instructions Ordering Provider Order Date Source Hydrochlorothiazide 25 Mg Tablet, 25 Mg Oral Daily Active 03/08/2018 [facility] Air Duo Respilick Twice A Day Active [facility] Amlodipine Besylate (Norvasc) 5 Mg Tab Daily Active [facility] Aspirin (Aspir 81) 81 Mg Tablet.dr Uriarte Active [facility] Astropro Daily Active [facility] Cholecalciferol (Vitamin D3) (Vitamin D3) 1,000 Unit Tablet Daily Active [facility] Docusate Sodium 100 Mg Capsule Daily Active [facility] Doxazosin Mesylate 2 Mg Tablet Daily Active [facility] Esomeprazole Magnesium (Nexium) 20 Mg Capsule.dr Uriarte Active PROTONIX THERAPEUTIC INTERCHANGE PER [facility] Estradiol 1 Mg Tab Every 48 Hours Active [facility] Flonase Daily Active [facility] Guaifenesin (Mucinex) 1,200 Mg Tbmp.12hr Twice A Day Active [facility] Herbal Laxative Twice A Day Active [facility] Latanoprost 2.5 Ml Drops Bedtime Active [facility] Levocetirizine Dihydrochloride (Xyzal) 5 Mg Tablet Daily Active THERAPEUTICALLY SUBSTITUTED WITH LORATADINE [facility] Levothyroxine Sodium (Synthroid) 50 Mcg Tab Today At 6:30AM Active [facility] Losartan Potassium 100 Mg Tablet Daily Active [facility] Lutein 6 Mg Capsule Daily Active [facility] Jackeline Extract (Jackeline) 500 Mg Capsule Every 48 Hours Active [facility] Potassium Chloride (Klor-Con 10) 10 Meq Tablet.er Daily Active [facility] Vitamin E 400 Unit Capsule Daily Active [facility] Allergies, Adverse Reactions, Alerts Substance Category Reaction Severity Reaction type Status Date Reported Comments Source Hydrocodone Severe Allergy to Substance Active 03/05/2018 [facility] Albuterol Severe Allergy to Substance Active 03/05/2018 [facility] Ciprofloxacin Severe Allergy to Substance Active 03/05/2018 [facility] Hydralazine Severe Allergy to Substance Active 03/05/2018 [facility] Immunizations Immunization Date Given Site Status Last Updated Comments Source Results Order Name Results Value Reference Range Date Interpretation Comments Source Serum or plasma sodium measurement (moles/volume) 133 136 - 145 03/08/2018 [facility] Serum or plasma potassium measurement (moles/volume) 3.9 3.5 - 5.1 03/08/2018 [facility] Serum or plasma chloride measurement (moles/volume) 99 98 - 107 03/08/2018 [facility] Serum or plasma carbon dioxide, total measurement (moles/volume) 26 22 - 29 03/08/2018 [facility] Serum or plasma anion gap 11.9 8 - 16 03/08/2018 [facility] Serum or plasma urea nitrogen measurement (mass/volume) 9 7 - 26 03/08/2018 [facility] Serum or plasma creatinine measurement (mass/volume) 0.58 0.57 - 1.11 03/08/2018 [facility] Serum or plasma urea nitrogen/creatinine mass ratio 16 6 - 25 03/08/2018 [facility] Estimated glomerular filtration rate (GFR) determination > 60 60 03/08/2018 [facility] Glucose measurement 79 74 - 118 03/08/2018 [facility] Serum or plasma calcium measurement (mass/volume) 9.3 8.4 - 10.2 03/08/2018 [facility] Blood leukocytes automated count (number/volume) 5.10 4.8 - 10.8 03/06/2018 [facility] Blood erythrocytes automated count (number/volume) 3.47 3.6 - 5.1 03/06/2018 [facility] Blood hemoglobin measurement (moles/volume) 11.2 12.0 - 16.0 03/06/2018 [facility] Automated blood hematocrit (volume fraction) 31.9 34.2 - 44.1 03/06/2018 [facility] Automated erythrocyte mean corpuscular volume 91.9 81 - 99 03/06/2018 [facility] Automated erythrocyte mean corpuscular hemoglobin (mass per erythrocyte) 32.3 28 - 32 03/06/2018 [facility] Automated erythrocyte mean corpuscular hemoglobin concentration measurement (mass/volume) 35.1 31 - 35 03/06/2018 [facility] RDW BldCo-Rto 12.2 11.7 - 14.4 03/06/2018 [facility] Automated blood platelet count (count/volume) 239 140 - 360 03/06/2018 [facility] Automated blood segmented neutrophil count as percentage of total leukocytes 56.5 38.7 - 80.0 03/06/2018 [facility] Automated blood lymphocyte count as percentage ot total leukocytes 27.8 18.0 - 39.1 03/06/2018 [facility] Automated blood monocyte count as percentage of total leukocytes 13.5 4.4 - 11.3 03/06/2018 [facility] Automated blood eosinophil count as percentage of total leukocytes 1.2 0.0 - 6.0 03/06/2018 [facility] Automated blood basophil count as percentage of total leukocytes 0.6 0.0 - 1.0 03/06/2018 [facility] IM GRANULOCYTES % 0.4 0.0 - 1.0 03/06/2018 [facility] Automated blood neutrophil count 2.9 2.1 - 6.9 03/06/2018 [facility] Blood lymphocytes count (number/volume) 1.4 1.0 - 3.2 03/06/2018 [facility] Blood monocytes automated count (number/volume) 0.7 0.2 - 0.8 03/06/2018 [facility] Automated blood eosinophil count 0.1 0.0 - 0.4 03/06/2018 [facility] Automated blood basophil count (count/volume) 0.0 0.0 - 0.1 03/06/2018 [facility] Absolute Immature Granulocyte (auto 0.02 0 - 0.1 03/06/2018 [facility] Serum or plasma total bilirubin measurement (mass/volume) 0.6 0.2 - 1.2 03/06/2018 [facility] Aspartate Amino Transf (AST/SGOT) 15 5 - 34 03/06/2018 [facility] Serum or plasma alanine aminotransferase measurement (enzymatic activity/volume) 14 0 - 55 03/06/2018 [facility] Serum or plasma protein measurement (mass/volume) 5.7 6.5 - 8.1 03/06/2018 [facility] Serum or plasma albumin measurement (mass/volume) 3.3 3.5 - 5.0 03/06/2018 [facility] Plasma globulin measurement (mass/volume) 2.4 2.3 - 3.5 03/06/2018 [facility] Serum or plasma albumin/globulin mass ratio 1.4 0.8 - 2.0 03/06/2018 [facility] Serum or plasma alkaline phosphatase measurement (enzymatic activity/volume) 54 40 - 150 03/06/2018 [facility] Serum or plasma thyrotropin measurement by detection limit <=0.005 miu/l (units/volume) 1.104 0.350 - 4.940 03/06/2018 [facility] Serum or plasma creatine kinase measurement (enzymatic activity/volume) 127 29 - 168 03/05/2018 [facility] Serum or plasma creatine kinase MB measurement (mass/volume) 2.90 0 - 5.0 03/05/2018 [facility] Troponin I measurement by highly sensitive enzyme immunoassay 0.014 0 - 0.300 03/05/2018 [facility] Urine color determination YELLOW YELLOW 03/05/2018 [facility] Urine clarity CLEAR CLEAR 03/05/2018 [facility] Specific gravity of Urine by Test strip 1.030 1.010 - 1.025 03/05/2018 [facility] Urine pH measurement by automated test strip 6 5 - 7 03/05/2018 [facility] Urine leukocyte esterase detection by dipstick NEGATIVE NEGATIVE 03/05/2018 [facility] Urine nitrite detection NEGATIVE NEGATIVE 03/05/2018 [facility] Urine protein measurement by test strip (mass/volume) TRACE NEGATIVE 03/05/2018 [facility] Urine glucose detection NEGATIVE NEGATIVE 03/05/2018 [facility] Urine ketones detection by automated test strip 3+ NEGATIVE 03/05/2018 [facility] Urine urobilinogen measurement by test strip (mass/volume) 0.2 0.2 - 1 03/05/2018 [facility] Urine total bilirubin measurement (mass/volume) NEGATIVE NEGATIVE 03/05/2018 [facility] Urine erythrocytes detection NEGATIVE NEGATIVE 03/05/2018 [facility] Automated urine sediment leukocyte count by microscopy (number/high power field) 0-5 0 - 5 03/05/2018 [facility] Erythrocytes detection in urine sediment by light microscopy 0-5 0 - 5 03/05/2018 [facility] Bacteria detection in urine sediment by light microscopy FEW NONE 03/05/2018 [facility] Epithelial cells detection in urine sediment by light microscopy FEW NONE 03/05/2018 [facility] Vital Signs Vital Sign Value Date Comments Source Encounters Location Location Details Encounter Type Encounter Number Reason For Visit Attending Provider ADM Date DC Date Status Source Discharged Inpatient [id number] GABBY NINA MD 03/05/2018 03/08/2018 [facility] Procedures Procedure Code Date Perfomer Comments Source Computed tomography of brain without radiopaque contrast [id number] 03/05/2018 DAKSHA [facility]
--- OUTSIDE RECORDS SUMMARY | 2018-08-31 17:31 | XMS REPORT | Clinical Summary ---
Author Author [facility] Address Unknown Phone Unavailable Care Team Providers Care Mohs Surgeon Name Role Phone Jerome Abdul MD PCP [...] 0 capsule by mouth every evening. Active gkizvvhl-yirr-czxa-FA-K-h Take 1 tablet 0 b#244 (ALIVE WOMEN'S [...] patch 12 hour on the skin daily. 09/03/2018 Active amoxicillin-pot Take 1 tablet 14 tablet 0 clavulanate (AUGMENTIN) by mouth 2 9 875-125 mg per tablet (two) times a [...] BY 8 MOUTH IN A SINGLE DOSE 05/15/2018 nitrofurantoin, Take 1 14 capsule 0 macrocrystal-monohydrate, capsule (100 9 (MACROBID) 100 MG capsule mg total) by mouth 2 (two) times a day for 7 days. 06/30/2018 amoxicillin-pot Take 1 tablet 14 tablet 0 clavulanate (AUGMENTIN) by mouth 2 9 875-125 mg per tablet (two) times a day for 7 days. 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 Encounters Care Team Description Date Type Specialty Bella Mueller MA 08/27/2018 Telephone UrologShaina Max MD 08/25/2018 Telephone Urology Shantel Camargo MA 06/23/2018 Telephone UrologShaina Max MD Recurrent UTI (Primary Dx) 06/19/2018 Telephone UrologShantel Elizabeth MA 05/08/2018 Telephone UrologShaina Max MD 05/06/2018 Telephone UrologShaina Max MD 11/12/2017 Refill Urology Shaina Romano MD [...] Garcia MD Recurrent UTI 09/26/2017 Orders Only Urology Shaina Romano MD Incomplete bladder emptying (Primary Dx); Urinary frequency 09/24/2017 Office Visit Urology Shaina Romano MD 09/23/2017 Telephone Urology Shaina Romano MD Recurrent UTI (Primary Dx) 09/19/2017 Telephone Urology Kaela Garcia MD Recurrent UTI 09/19/2017 Orders Only Urology Kaela Garcia MD Recurrent UTI 09/12/2017 Orders Only Urology Kaela Garcia MD Recurrent UTI 09/05/2017 Orders Only Urology after 08/30/2017 Family History Medical History Relation Name Comments [...] Treatment Care Team Description Date Type Specialty Luiz Kaur MD [address] [facility] [address] [place] [address] [phone] 09/16/2018 Office Visit Neurology Shaina Romano MD [address] [facility] [address] [place] [address] [phone] 09/30/2018 Office Visit Urology Nelli Blackburn MD [address] [facility] [address] [place] [address] [phone] 12/31/2018 Office Visit Neurology Health Maintenance Due Date Last Done Comments SHINGLES VACCINES (#1) 1988 65+ PNEUMOCOCCAL VACCINE 2003 (1 of 2 - PCV13) PNEUMOCOCCAL 2003 POLYSACCHARIDE VACCINE AGE 65 AND OVER INFLUENZA VACCINE 11/12/2018 COLON CANCER SCREENING 03/17/2020 03/17/2017 Implants Device Identifier Shelf Expiration Date Model / Serial / Lot Implanted Type Area Manufactur er 03/13/2021 [id number] / / [id number] [place] Rev F Mc Glid.Surf.T2/2+ IPM Left: Knee AESCULAP 14mm - [id number] IMPLANT IMPLANT Implanted: Qty: 1 on 12/17/2016 by [employer] Maxim Live MD ORTH[employer] CS 06/11/2026 [id number] / / [id number] Nut F/Femur Extens.Stem All Sizes IPM Left: Knee AESCULAP Neutr - [id number] IMPLANT IMPLANT Implanted: Qty: 1 on 12/17/2016 by Maxim Urrutia MD ORTH[employer] CS 11/11/2025 [id number] / / [id number] Femur Extens.Stem 5 [id number] IPM Left: Knee AESCULAP Jaswant.Less - [id number] IMPLANT IMPLANT Implanted: Qty: 1 on 12/17/2016 by [employer] Maxim Live MD ORTHOP[employer] CS 02/11/2026 [id number] / / [id number] As [place] Rev F Femur Cemented IPM Left: Knee AESCULAP F4l - [id number] IMPLANT IMPLANT Implanted: Qty: 1 on 12/17/2016 by [employer] Maxim Live MD ORTHOPA[employer]I CS 05/14/2026 [id number] / / [id number] As [place] Offset Stem [id number] IPM Left: Knee AESCULAP Cementless - [id number] IMPLANT IMPLANT Implanted: Qty: 1 on 12/17/2016 by [employer]ICES Maxim Live MD ORTH[employer] CS 03/13/2021 [id number] / / [id number] As [place] Rev F Tib.Offset IPM Left: Knee AESCULAP Cement.T2 - [id number] IMPLANT IMPLANT Implanted: Qty: 1 on 12/17/2016 by [employer] Maxim Live MD ORTH[employer] CS 04/14/2018 [id number] / / [id number] Simplex Hv With Gentamicin Us 1 IPM Left: Knee JOSE Pack - [id number] IMPLANT ORTHOPEDIC Implanted: Qty: 1 on 12/17/2016 by DEVICES S Maxim Celaya MD [id number] / / Pin Fxtn W/O Head 3.2x88mm - Knee Joint N/A: N/A AESCULAP [id number] Implants ORTHO Implanted: Qty: 2 on 12/17/2016 by Maxim Celaya MD [id number] / / Pin Headed Thred Univl 3.2x25mm Knee Joint N/A: N/A AESCULAP [place] - [id number] Implants ORTHO Implanted: Qty: 2 on 12/17/2016 by Maxim Celaya MD [id number] / / Pin Headls Thred Univl 3.2x63mm Knee Joint N/A: N/A AESCULAP [place] - [id number] Implants ORTHO Implanted: Qty: 6 on 12/17/2016 by Maxim Celaya MD 04/13/2026 [id number] / / [id number] As [place] Rev Fem.Spacer Post.F4 Left: Knee AESCULAP 5mm - [id number] IMPLANT Implanted: Qty: 1 on 12/17/2016 by [facility] Procedures Comments Procedure Name Priority Date/Time Associated Diagnosis URINE CULTURE Routine 08/22/2018 Recurrent UTI 11:42 AM CDT URINE CULTURE Routine 06/19/2018 Recurrent UTI 5:26 PM HEALTH AND PHYSICAL EDUCATION PROFESSOR URINE CULTURE Routine 05/05/2018 Recurrent UTI 3:02 PM HEALTH AND PHYSICAL EDUCATION PROFESSOR URINE CULTURE Routine 11/08/2017 Recurrent UTI 11:23 AM CDT URINE CULTURE Routine 09/19/2017 Recurrent UTI 1:43 PM CDT after 08/30/2017 Results * Urine culture (08/22/2018 11:42 AM CDT) Only the most recent of 5 results within the time period is included. 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 Proteus vulgaris -------- -------- INT LEXIS AMOX/CLAVULANATE S 4 AMPICILLIN R >=32 AMP/SULBACTAM S 8 CEFAZOLIN R >=64 1 CEFEPIME S <=1 CEFTRIAXONE S <=1 CIPROFLOXACIN S <=0.25 GENTAMICIN S <=1 IMIPENEM I 2 LEVOFLOXACIN S <=0.12 NITROFURANTOIN R 128 PIP/TAZOBACTAM S <=4 TOBRAMYCIN S <=1 TRIMETHOPRIM/SULFA S <=20 S=SusceptibleI=Intermediat eR=Resistant*=Not Tested NR=Not ReportedNN=See Therapy Comments THERAPY COMMENTS Note 1: For uncomplicated UTI caused by E. coli, K. pneumoniae or P. mirabilis: Cefazolin is susceptible if LEXIS <32 mcg/mL and predicts susceptible to the oral agents cefaclor, cefdinir, cefpodoxime, cefprozil, cefuroxime, cephalexin and loracarbef. Specimen Urine Narrative Performed At FASTING:YES [facility] FASTING: YES Resulting Agency Comment Performing Organization Information: Site ID: [id number] Name: [facility] Address: [address] [place] [id number] Director: Nelli Onofre Performing Organization Address City/State/Zipcode Phone Number [facility] [address] [place] [phone] after 08/30/2017 Insurance Type Payer Benefit Subscriber ID Effective Phone Address Plan / Dates Group Medicare MEDICARE MEDICARE xxxxxxxxxx 2003-P BOWER, PART A AND resent [place] B Commercial COMMERCIAL MISC MISC xxxxxxxxxxx [id number] COMMERCIAL resent Advance Directives Patient has advance care planning documents on file. For more information, david e contact: Mohan Eldridge [address] [place] [address]
--- NOTE | 2018-08-31 18:37 | Diagnostic Imaging Report ---
ADDENDUM #1 I have reviewed the images and agree with findings in the preliminary report. Signed by: Dr. Edel Dugan M.D. on 08/31/2018 8:12 PM ORIGINAL REPORT Exam: Noncontrast Head CT History: 78-year-old female with status post fall, "busted nose " Comparison studies: Head CT dated 03/05/2018 Technique: Axial images were obtained from the skull base to the vertex. Coronal and sagittal reconstructions obtained from the axial data. Dose modulation, iterative reconstruction, and/or weight based adjustment of the mA/kV was utilized to reduce the radiation dose to as low as reasonably achievable. Findings: Scalp/skull: Soft tissue swelling partially visualized at the bridge of the nose. No fractures, blastic or lytic lesions. Extra-axial spaces: No masses. No fluid collections. Brain sulci: Appropriate for age. Ventricles: Normal in size and configuration. No hydrocephalus. Parenchyma: No abnormal densities. No masses, hemorrhage, acute or chronic cortical vascular insults. Sellar/suprasellar region: No abnormalities Craniocervical junction: Patent foramen magnum. No Chiari one malformation. IMPRESSION: No acute intracranial abnormalities. Partially visualized soft tissue swelling at the nasal bridge. Report dictated by neuroradiology fellow. Final read to follow. Signed by: Rambo Torres MD on 08/31/2018 6:34 PM
--- NOTE | 2018-08-31 18:44 | Diagnostic Imaging Report ---
ADDENDUM #1 C3-C4: Mild right and severe left foraminal stenosis due to facet arthrosis. C4-C5: Moderate bilateral foraminal stenosis due to facet and uncovertebral arthrosis. C5-C6: Mild right and severe left foraminal stenosis due to facet and uncovertebral arthrosis. C6-C7: Mild right and moderate left foraminal stenosis due to facet and uncovertebral arthrosis. I have reviewed the images and otherwise agree with findings in the preliminary report. Signed by: Dr. Edel Dugan M.D. on 08/31/2018 8:32 PM ORIGINAL REPORT Exam: Noncontrast cervical spine CT History: 78-year-old female, status post fall Comparison studies: None Technique: Axial images were obtained through the cervical region. Coronal and sagittal images reconstructed from the axial data. Dose modulation, iterative reconstruction, and/or weight based adjustment of the mA/kV was utilized to reduce the radiation dose to as low as reasonably achievable. Intravenous contrast: None Findings: Airway: Patent. Atlantoaxial articulation: Intact Alignment: 3 mm of anterolisthesis of C3 on C4. Slight anterolisthesis of C2 on C3 and C7 on T1. Cervicomedullary junction: No abnormalities. Patent foramen magnum. Soft tissues: No gross abnormalities. Vertebrae: No fractures, neoplasm or infection. Degenerative changes: Multilevel disc degenerative changes, advanced at C4-5 through C6-7. Severe degenerative foraminal stenosis due to anterolisthesis and uncovertebral hypertrophy bilaterally at C3-4 and due to vertebral hypertrophy alone bilaterally at C4-5 and on the right at C5-6 and likely C6-7.. Partially calcified disc osteophyte at multiple levels, greatest at C6-7, with mild central canal stenosis at that level. IMPRESSION: 1. No acute traumatic injury. Cannot adequately evaluate for ligament, spinal cord and or vascular abnormalities. 2. Chronic appearing 3 mm of degenerative anterolisthesis of C3 on C4 with milder anterolisthesis of C2 on C3 and C7 on T1. 3. Multilevel severe foraminal stenosis, as above. Signed by: Rambo Torres MD on 08/31/2018 6:41 PM
[2018-08-31] MEDS ORDERED: ACETAMINOPHEN 325 MG TAB PO ONE (18:45)
--- NOTE | 2018-08-31 18:47 | Diagnostic Imaging Report ---
ADDENDUM #1 I have reviewed the images and agree with findings in the preliminary report. Signed by: Dr. Edel Dugan M.D. on 08/31/2018 8:35 PM ORIGINAL REPORT Exam: Noncontrast maxillofacial CT History:78-year-old female, status post fall Comparison studies: None Technique: Axial images were obtained through the maxillofacial region. Coronal and sagittal images reconstructed from the axial data. Dose modulation, iterative reconstruction, and/or weight based adjustment of the mA/kV was utilized to reduce the radiation dose to as low as reasonably achievable. Intravenous contrast: None Findings: Soft tissues: Mild soft tissue swelling/hematoma overlying the nasal bones and nasal bridge. Bones: Nondisplaced comminuted fracture of the bilateral nasal bones, right slightly greater than left. Mild rightward nasal septal deviation with bony spur. No definitive nasal septum fracture. Degenerative changes to the bilateral temporomandibular joints. Orbits: Globes: Intact Extra or intraconal abnormalities: None. Paranasal sinuses: Clear IMPRESSION: Nondisplaced comminuted nasal bone fractures with overlying soft tissue swelling/hematoma. Signed by: Rambo Torres MD on 08/31/2018 6:44 PM
[2018-08-31] MEDS ORDERED: LISINOPRIL 20 MG TAB PO ONE (19:00)
--- NOTE | 2018-08-31 19:34 | Diagnostic Imaging Report ---
EXAMINATION: RIBS UNILAT W/CXR INDICATION: ^right rib pain s/p fall COMPARISON: None FINDINGS: TUBES and LINES: None. LUNGS: Lungs are well inflated. Focal consolidation the right midlung. There is no evidence of pneumonia or pulmonary edema. PLEURA: No pleural effusion or pneumothorax. HEART AND MEDIASTINUM: The cardiomediastinal silhouette is unremarkable. BONES AND SOFT TISSUES: No acute osseous lesion. Soft tissues are unremarkable. Bilateral breast implants. UPPER ABDOMEN: No free air under the diaphragm. IMPRESSION: No rib fractures identified. Focal consolidation in the right midlung. Signed by: Dr. Wai Paredes M.D. on 08/31/2018 7:30 PM
[2018-08-31 20:57] VITALS: BP 150/54
== END 2018-08-31 21:19 | disposition home or self-care (01) ==
LOC: ER 17:28
DX: S01.21XA Laceration without foreign body of nose, initial encounter (principal); S00.83XA Contusion of other part of head, initial encounter; S20.211A Contusion of right front wall of thorax, initial encounter; W01.0XXA Fall on same level from slipping, tripping and stumbling without subsequent striking against object, initial encounter; Y93.01 Activity, walking, marching and hiking; Y92.481 Parking lot as the place of occurrence of the external cause; I10 Essential (primary) hypertension; J45.909 Unspecified asthma, uncomplicated; E07.9 Disorder of thyroid, unspecified
CPT/HCPCS: 70450; 70486; 71101; 72125; 99284

== ENCOUNTER 2021-03-18 21:57 | Emergency (ER) | payer MEDICARE, OTHER ==
[~2021-03-18] VITALS: Ht 162.6 cm; Wt 65.3 kg
[2021-03-18] MEDS ORDERED: Morphine 4mg Syringe 4 MG/ML INJ IM STA (22:42)
[2021-03-18 23:18] LABS: BACTERIA,URINE MANY /HPF; CLARITY,URINE CLOUDY (CLEAR); COLOR,URINE YELLOW (YELLOW); EPITHELIAL CELLS,URINE FEW /LPF; KETONES,URINE 1+ (NEGATIVE); LEUKOCYTE ESTERASE ,URINE 1+ (NEGATIVE); NITRITE,URINE POSITIVE (NEGATIVE); PROTEIN,URINE DIPSTICK TRACE (NEGATIVE); WBC,URINE (MAN) >50 /HPF (0-5)
[2021-03-18 23:19] LABS: URINE UROBILINOGEN 0.2 mg/dL (0.2 - 1)
[2021-03-18] MEDS ORDERED: TRIMETHOPRIM/SULFAMETHOXAZOLE 160-800 MG TAB PO STA (23:22)
[2021-03-19] MEDS ORDERED: ULTRAM 50MG50 MG PO (01:49)
[2021-03-19] MEDS ORDERED: BACTRIM 400-801 EACH PO (01:49)
[2021-03-19 04:34] VITALS: BP 135/65
== END 2021-03-19 04:00 | disposition home or self-care (01) ==
LOC: ER 22:17
DX: R33.9 Retention of urine, unspecified (principal); N39.0 Urinary tract infection, site not specified; M25.551 Pain in right hip; I10 Essential (primary) hypertension; E03.9 Hypothyroidism, unspecified; K21.9 Gastro-esophageal reflux disease without esophagitis; J45.909 Unspecified asthma, uncomplicated; H40.9 Unspecified glaucoma; Z96.653 Presence of artificial knee joint, bilateral; Z96.641 Presence of right artificial hip joint
CPT/HCPCS: 51702; 73502; 73552; 81001; 93971; 99284; J2270; 51700